=== PATIENT | female | born 1990 | race Caucasian/White ===

== ENCOUNTER → 2022-10-18 | Outpatient (CLI) | payer BC ==
[~2022-10-18] MED LIST: ACET1TAB43 PO; ACHD5005 PO; CODE-54 PO; FAMC250T2 PO; FAMO20TA5 PO; FERR-57 PO; HYDR-2854 PO; IBP600T1 PO; IBUP-15 PO; ONDA-42 SL; PREN1TAB25 PO; PREN1TAB39 PO; SUCR1TAB PO
[2022-10-18 16:01] LABS: HEMATOCRIT 38 % (35-52); HEMOGLOBIN 12.7 g/dL (11.5-16.0); MEAN CORPUSCULAR HEMOGLOBIN 30 pg (25-34); MEAN CORPUSCULAR HGB CONC 33 g/dL (32-36); MEAN CORPUSCULAR VOLUME 89 fL (80-99); MEAN PLATELET VOLUME 9.3 fL (9.0-12.2); PLATELET COUNT 172 10^3/uL (130-400); WHITE BLOOD COUNT 5.9 10^3/uL (4.3-11.0)
[2022-10-18 16:21] LABS: ALBUMIN 3.8 GM/DL (3.2-4.5); BILIRUBIN,TOTAL 0.3 MG/DL (0.1-1.0); CALCIUM 8.1 MG/DL (8.5-10.1); CREATININE SERUM 0.88 MG/DL (0.60-1.30); TOTAL PROTEIN 5.8 GM/DL (6.4-8.2)
== END ==
LOC: LAB 15:14
PROVIDERS: ATTEND Internal Medicine Cardiovascular Disease
DX: R00.1 Bradycardia, unspecified (principal); I95.9 Hypotension, unspecified; R42 Dizziness and giddiness; Z82.49 Family history of ischemic heart disease and other diseases of the circulatory system
CPT/HCPCS: 36415; 80053; 80061; 83036; 84443; 85027; 86618; 86666; 86668; 86757

== ENCOUNTER → 2022-10-18 | Outpatient (CLI) | payer BC | LOC: LAB 15:19 | PROVIDERS: ATTEND Registered Nurse Critical Care Medicine | DX: I49.8 Other specified cardiac arrhythmias (principal); N39.0 Urinary tract infection, site not specified; R42 Dizziness and giddiness; R53.83 Other fatigue | CPT/HCPCS: 36415; 83880; 84484 ==

== ENCOUNTER → 2022-10-19 | Outpatient (CLI) | payer BC ==
[2022-10-19 14:56] VITALS: BP 99/54
--- NOTE | 2022-10-19 14:56 | Cardiology Stress Test Report ---
Stress Test Report Date of Procedure/Referring: Date of Procedure: Oct 19, 2022 PCP Lorrie Rodriguez DO Admitting Physician Admitting Physician: Attending Physician: Hina Alves MD Baseline Heart Rate: 70 Baseline Blood Pressure: Blood Pressure Systolic: 99 Blood Pressure Diastolic: 54 Baseline EKG: Baseline EKG: NSR Summary/Conclusion: Summary: In summary, the patient started exercising with a baseline heart rate, blood pressure and EKG mentioned above Patient was able to exercise for a total of 8 minutes on Kamari protocol, METs 9.5 Maximum heart rate 163 Maximum blood pressure 132/74 Stress EKG, Minimal nondiagnostic changes Recovery EKG , Return to baseline Conclusion: 1. Good exercise tolerance for a total of 8 minutes on Kamari protocol, 9.5 METs, achieving 87 percent of maximum expected heart rate 2. Minimal nondiagnostic EKG changes with exercise returned to baseline during recovery 3. No arrhythmia was noted Copy Copies To 1: LORRIE RODRIGUEZ BASHAR J MD Oct 19, 2022 14:56
== END ==
LOC: CARD 13:19
PROVIDERS: ATTEND Internal Medicine Cardiovascular Disease
DX: R00.1 Bradycardia, unspecified (principal)
CPT/HCPCS: 83036; C8929; 36415; 93017; 93306